=== PATIENT | male | born 1965 | race Caucasian/White ===

== ENCOUNTER → 2022-05-12 13:48 | Outpatient (BNVA) | payer OTHER, SELFPAY | PROVIDERS: PCP Nurse Practitioner Family; Visit Provider Nurse Practitioner Family | DX: R30.0 Dysuria (principal); N39.0 Urinary tract infection, site not specified | CPT/HCPCS: 81003 ==

== ENCOUNTER → 2022-05-13 10:55 | Outpatient (BNVA) | payer OTHER, SELFPAY | PROVIDERS: PCP Nurse Practitioner Family; Visit Provider Nurse Practitioner Family | DX: Z12.5 Encounter for screening for malignant neoplasm of prostate (principal); N39.0 Urinary tract infection, site not specified; Z13.6 Encounter for screening for cardiovascular disorders | CPT/HCPCS: 80053; 80061; 82607; 85025; G0103 ==

== ENCOUNTER → 2022-09-14 14:01 | Outpatient (BNVA) | payer OTHER, SELFPAY | PROVIDERS: PCP Nurse Practitioner Family; Visit Provider Nurse Practitioner Family | DX: R39.9 Unspecified symptoms and signs involving the genitourinary system (principal); N39.0 Urinary tract infection, site not specified | CPT/HCPCS: 81000; 81003; 87086 ==